=== PATIENT | male | born 1955 | race Caucasian/White ===

== ENCOUNTER 2018-03-06 02:51 | Emergency (ER) | payer OTHER, SELFPAY ==
[2018-03-06 02:51] VITALS: BP 132/84; PULSE 80; RESP 12; RESP 20; TEMP 36.6; O2SAT 97; O2SAT 99; BMI 31.4
--- NOTE | 2018-03-06 03:34 | ED.RN ---
DR WHITAKER NOTIFIED OF BLOOD SUGAR RESULTS. TO RECHECK IN ONE HOUR
[2018-03-06 03:36] LABS: Bedside Glucose 99 mg/dL (70-110)
--- NOTE | 2018-03-06 04:39 | ED.DCSUM_ITS ---
- ER Visit Summary Date of Service: 03/06/18 Chief Complaint: [] Bloodsugars low History of Present Illness: The patient is a 62 M woke up and felt lightheaded and thirsty. Took his blood sugar was 54. He is on glipizide for the last 2 months he just started this. Also on metformin. No insulin. His blood sugars run in the 100s. No change in his diet. He did eat well yesterday. Denies any current symptoms Physical Examination: Vital signs reviewed General: Well-nourished well-developed Head: Normocephalic atraumatic Eyes: Pupils equal round and reactive to light extraocular movements intact ENT: TMs clear no hemotympanum no trauma Neck: Nontender full range of motion Cardiovascular: Regular rate rhythm no murmurs normal S1-S2 Respiratory: No distress clear to auscultation bilaterally chest nontender Abdomen: Soft nontender nondistended normal bowel sounds no masses Back: Nontender no CVA tenderness Extremities: Nontender active range of motion ?4 extremities no trauma Skin: Normal color no trauma Neuro alert oriented cranial nerves II through XII intact normal strength sensation reflexes Test Results: [] Emergency Department Course and Treatment: [] Comfortably. Blood sugar 52. Given oral juice and a meal. Repeat blood sugar at 3:30 in the morning is 99. Blood sugar at 4:30 in the morning is 155 and he is asymptomatic. We will go home and check his sugars frequently. He will hold his glipizide as this is likely the cause. He will call his doctor and see if they want him to continue this. Treatment Plan: [] Disposition: [] Impression: [] Diabetes with hypoglycemia This note was generated with [employer] dictation software. It may contain incorrect words, spelling, and punctuation that were not noted in review of the chart prior to signing ED Disposition - Plan for ED Patient: Chief Complaint: Hypoglycemia Referrals: Avelina Orozco MD [Primary Care Provider] -
--- NOTE | 2018-03-06 04:40 | ED.DEP ---
ED Disposition - Plan for ED Patient: Disposition: Home or Assisted Living Chief Complaint: Hypoglycemia Instructions: ED Diabetes Hypoglycemia Oral Agent Referrals: Avelina Orozco MD [Primary Care Provider] -
[2018-03-06 04:41] VITALS: BP 135/84; PULSE 62; RESP 18; O2SAT 98
[2018-03-06 04:41] LABS: Bedside Glucose 155 mg/dL (70-110)
--- NOTE | 2018-03-06 04:43 | ED.RN ---
THIS NURSE REVIEWED D/C INSTRUCTIONS WITH PT AND SO. BOTH VERBALIZED UNDERSTANDING OF INSTRUCTIONS. PT DENIES FURTHER NEEDS OR QUESTIONS. PT AMBULATES FROM ROOM ON OWN WITHOUT ASSISTANCE FROM STAFF
[2018-03-06 07:10] LABS: Bedside Glucose 52 mg/dL (70-110)
== END 2018-03-06 04:44 | disposition home or self-care (01) ==
PROVIDERS: Emergency Provider Emergency Medicine; Family Provider Internal Medicine; PCP Internal Medicine
DX: E11.649 Type 2 diabetes mellitus with hypoglycemia without coma (principal); Z79.84 Long term (current) use of oral hypoglycemic drugs; Z79.899 Other long term (current) drug therapy
CPT/HCPCS: 82962; 99282

== ENCOUNTER 2021-03-06 19:07 | Emergency (ER) | payer OTHER, SELFPAY ==
[2021-03-06 19:07] VITALS: BP 155/84; PULSE 67; RESP 16; TEMP 36.4; O2SAT 99; BMI 29.5
--- NOTE | 2021-03-06 19:17 | EX.ED.UPPERE ---
HPI History of Present Illness Chief Complaint: Laceration Informant: patient Occured/Mechanism Mechanism/Context: Yes injury and Yes other see comment below Comment: Injury to distal left index finger from table [facility] Medical History (Updated 03/06/21 @ 19:13 by Beatrice Sanabria) Diabetes Home Medications atenolol 50 mg PO BID 11/15/16 [History Last Taken Unknown] brinzolamide [Azopt] 1 drp EACH EYE BID 11/15/16 [History Last Taken Unknown] hydrochlorothiazide 1 tab PO DAILY 11/15/16 [History Last Taken Unknown] metformin 2 tab PO BID 11/15/16 [History Last Taken Unknown] multivitamin with folic acid [Thera] 1 tab PO DAILY 11/15/16 [History Last Taken Unknown] thiamine HCl (vitamin B1) [Vitamin B-1] 100 mg PO DAILY 11/15/16 [History Last Taken Unknown] atorvastatin 40 mg PO QHS 03/06/18 [History Last Taken Unknown] aspirin 81 mg PO DAILY 03/06/21 [History Last Taken Unknown] tamsulosin 0.4 mg PO QHS 03/06/21 [History Last Taken Unknown] valsartan 160 mg PO DAILY 03/06/21 [History Last Taken Unknown] Allergy/AdvReac Type Severity Reaction Status Date / Time duloxetine [From Cymbalta] Allergy Rash Verified 03/06/21 19:09 Surgical History (Updated 03/06/21 @ 19:13 by Beatrice Sanabria) History of brain surgery Social History Smoking Status: Former smoker EXAM Physical Exam Const Vital Signs: 03/06/21 19:07 Temperature 97.6 F L Temperature Source Temporal Pulse Rate 67 Respiratory Rate 16 Blood Pressure 155/84 H Blood Pressure Mean 107 Pulse Ox 99 Oxygen Delivery Method Room Air Discharge Plan Triage Chief Complaint: Laceration ED Provider: Ryan Shannon Dx/Rx/DC Orders Prescriptions: No Action brinzolamide [Azopt] 1 DROP bottle 1 drp Each Eye BID RF: 0 atenolol 25 MG tablet 50 mg PO BID RF: 0 thiamine HCl (vitamin B1) [Vitamin B-1] 100 MG tablet 100 mg PO DAILY RF: 0 hydrochlorothiazide 25 MG tablet 1 tab PO DAILY RF: 0 metformin 500 MG tablet extended release 24 hr 2 tab PO BID RF: 0 multivitamin with folic acid [Thera] 1 TABLET tablet 1 tab PO DAILY RF: 0 atorvastatin 40 MG tablet 40 mg PO QHS RF: 0 tamsulosin 0.4 mg Capsule 0.4 mg PO QHS RF: 0 aspirin 81 mg Tablet 81 mg PO DAILY RF: 0 valsartan 160 mg Tablet 160 mg PO DAILY RF: 0 Primary Care Provider: Avelina Orozco
--- NOTE | 2021-03-06 19:21 | RAD_ITS ---
STUDY: X-RAY - LEFT HAND, ATTENTION SECOND FINGER REASON FOR EXAM: Male, 65 years old. Injury/Pain, table saw TECHNIQUE: view(s) of the finger were obtained. COMPARISON: None. FINDINGS: Normal metacarpal head. Normal metacarpophalangeal joint. Normal proximal phalanx. Normal middle phalanx. Normal distal phalanx. Normal proximal interphalangeal joint. Normal distal interphalangeal joint. RAD/Finger(s) Min 2 Views IMPRESSION: Normal x-ray examination of the finger. No fracture or foreign body. Electronically Signed: Uriah Miller MD at 20:09 EDT Tel , Service support ,
--- NOTE | 2021-03-06 19:27 | EX.ED.UPPERE ---
HPI History of Present Illness Chief Complaint: Laceration Informant: patient Occured/Mechanism Mechanism/Context: Yes injury Comment: Table saw Onset/Context/Timing Onset: Today (This morning at home) Quality of Pain: Throbbing Current Severity: Mild Maximum Severity: Moderate Worsened by: Nothing Relieved by: Nothing Associated Symptoms Associated Symptoms: Positive for Parasthesia (Chronic due to cervical spine surgery); Negative for Weakness and Loss of Funtion Narrative Narrative: Patient is an elderly male with history of type 2 diabetes, benign prostatic hypertrophy, dyslipidemia who presents with injury to his left index finger. [id number]. He sustained injury this morning with table saw. He has a laceration through the distal portion of the left index finger involving the nail bed. He states he is able to move his finger. Tetanus is unknown. states he is due. Tetanus Immunization: Unknown Prior similar symptoms: No Recent Illness/[facility]ospital[facility]: [facility] Medical History Diabetes Home Medications atenolol 50 mg PO BID 11/15/16 [History Last Taken Unknown] brinzolamide [Azopt] 1 drp EACH EYE BID 11/15/16 [History Last Taken Unknown] hydrochlorothiazide 1 tab PO DAILY 11/15/16 [History Last Taken Unknown] metformin 2 tab PO BID 11/15/16 [History Last Taken Unknown] multivitamin with folic acid [Thera] 1 tab PO DAILY 11/15/16 [History Last Taken Unknown] thiamine HCl (vitamin B1) [Vitamin B-1] 100 mg PO DAILY 11/15/16 [History Last Taken Unknown] atorvastatin 40 mg PO QHS 03/06/18 [History Last Taken Unknown] aspirin 81 mg PO DAILY 03/06/21 [History Last Taken Unknown] tamsulosin 0.4 mg PO QHS 03/06/21 [History Last Taken Unknown] valsartan 160 mg PO DAILY 03/06/21 [History Last Taken Unknown] Allergy/AdvReac Type Severity Reaction Status Date / Time duloxetine [From Cymbalta] Allergy Rash Verified 03/06/21 19:09 Surgical History History of brain surgery Social History (Updated 03/06/21 @ 19:[address] Ryan Shannon MD) household members: spouse housing: house Smoking Status: Former smoker alcohol intake: current alcohol intake frequency: holidays/special occasions only substance use type: does not use ROS ROS ED Constitutional Constitutional ED: Denies chills, subjective or sweats Eyes Eyes: Denies blurry vision or change in vision Musculoskeletal Musculoskeletal: Reports other Details: Left index finger pain ; Denies back pain, myalgias or neck pain Neurologic Neurologic: Reports paresthesias LUE and weakness Hematologic/Lymphatic Hematologic/Lymphatic: Denies easy bleeding or easy bruising EXAM Physical Exam Const Vital Signs: 03/06/21 19:07 Temperature 97.6 F L Temperature Source Temporal Pulse Rate 67 Respiratory Rate 16 Blood Pressure 155/84 H Blood Pressure Mean 107 Pulse Ox 99 Oxygen Delivery Method Room Air Positive well nourished and well developed General Appearance ED: well developed HEENT normocephalic and atraumatic Eyes PERRL and EOMs intact bilaterally Neck full ROM and supple Resp normal respiratory effort and clear to auscultation bilaterally Cardio regular rate, regular rhythm, S1 normal heart sound, S2 normal heart sound and no murmurs Extremity full ROM; Negative for normal to inspection Extremity Narrative: The extensor Insight tendon is intact. The flexor digitorum superficialis and flexor digitorum profundus are intact. He has injury involving the nailbed and distal portion of the left index finger. Capillary refill is normal. He reports normal sensation. Neuro oriented x3, CN's II-XII intact bilaterally, no focal motor deficits and no sensory deficits noted Sensorium / Orientation: alert Psych mental status grossly normal Skin Lesions: no lesions Rashes: no rashes MDM MDM MDM Narrative Medical decision making narrative: X-ray was obtained to evaluate for fracture of the distal phalanx. The digit was no styes by nerve block./Digital block. Radiography Diagnostic Testing: Three-view x-ray of the left index finger is obtained. There is no evidence of fracture. There is no obvious foreign body noted. Plan is repair of nailbed injury please see procedure note Procedures Other Procedures Procedure(s): The medial third of the nail was gone. There is a flap type laceration on the radial side of the distal left index finger. Patient had a digital block placed. When he returned from x-ray he was appropriately anesthetized. The ulnar side of the nail was removed. 2 stitches were placed in the flap and one stitch was placed in the distal portion of the nailbed injury. The finger now has normal shape. The bleeding has been controlled. Vaseline gauze was packed under the cuticle. Dressing was applied. Since there is no injury to the bone patient was not placed on antibiotics. The total length of the laceration is 1.7 cm. Discharge Plan Triage Chief Complaint: Laceration ED Provider: Ryan Shannon Dx/Rx/DC Orders Clinical Impression: Nailbed injury Instructions: ED Laceration, Hand: All Closures Prescriptions: No Action brinzolamide [Azopt] 1 DROP bottle 1 drp Each Eye BID RF: 0 atenolol 25 MG tablet 50 mg PO BID RF: 0 thiamine HCl (vitamin B1) [Vitamin B-1] 100 MG tablet 100 mg PO DAILY RF: 0 hydrochlorothiazide 25 MG tablet 1 tab PO DAILY RF: 0 metformin 500 MG tablet extended release 24 hr 2 tab PO BID RF: 0 multivitamin with folic acid [Thera] 1 TABLET tablet 1 tab PO DAILY RF: 0 atorvastatin 40 MG tablet 40 mg PO QHS RF: 0 tamsulosin 0.4 mg Capsule 0.4 mg PO QHS RF: 0 aspirin 81 mg Tablet 81 mg PO DAILY RF: 0 valsartan 160 mg Tablet 160 mg PO DAILY RF: 0 Primary Care Provider: Avelina Orozco Referrals: Aveilna Orozco MD [Primary Care Provider] - Roman Carvajal DO [STAFF PHYSICIAN] - 2 Days for wound check Activity Restrictions/Additional Instructions: Do not remove dressing until seen by Dr. Mahendra Caba or one of his associates in 2 days. Disposition Disposition: Home, Self Care
[2021-03-06] MEDS: Lidocaine 1% (20 ml mdv) 20 ML Vial INFILT (19:31)
[2021-03-06] MEDS: Diphth,Pertuss(Acell),Tet Vac 0.5 ML Vial IM (19:31)
[2021-03-06 20:55] VITALS: BP 131/79; PULSE 79; RESP 20; O2SAT 98
--- NOTE | 2021-03-06 20:57 | ED.RN ---
THIS NURSE REVIEWED D/C INSTRUCTIONS WITH PT. PT VERBALIZED UNDERSTANDING OF INSTRUCTIONS. PT DENIES FURTHER NEEDS OR QUESTIONS AT THIS TIME
== END 2021-03-06 20:59 | disposition home or self-care (01) ==
PROVIDERS: Emergency Provider Emergency Medicine; PCP Internal Medicine
DX: S61.311A Laceration without foreign body of left index finger with damage to nail, initial encounter (principal); W29.8XXA Contact with other powered hand tools and household machinery, initial encounter; Y93.9 Activity, unspecified; Y92.9 Unspecified place or not applicable; Y99.9 Unspecified external cause status; Z23 Encounter for immunization; E11.9 Type 2 diabetes mellitus without complications; Z79.84 Long term (current) use of oral hypoglycemic drugs; Z79.82 Long term (current) use of aspirin; Z79.899 Other long term (current) drug therapy; Z87.891 Personal history of nicotine dependence; N40.0 Benign prostatic hyperplasia without lower urinary tract symptoms; E78.5 Hyperlipidemia, unspecified
CPT/HCPCS: 11760; 73140; 90471; 90715; 99282